=== PATIENT | female | born 1965 | race Two or more races ===

== ENCOUNTER 2021-04-29 11:36 | Emergency (ER) | payer MEDICAID, OTHER ==
[~2021-04-29] VITALS: Ht 157.5 cm; Wt 72.6 kg
[2021-04-29] MEDS ORDERED: cloNIDine HCL 0.1 MG TAB PO ONE (12:30)
[2021-04-29 13:57] VITALS: BP 140/100
== END 2021-04-29 14:18 | disposition home or self-care (01) ==
LOC: ER 11:36
DX: I10 Essential (primary) hypertension (principal); Z20.822 Contact with and (suspected) exposure to COVID-19
CPT/HCPCS: 36415; 87426

== ENCOUNTER 2024-06-19 15:04 | Inpatient (IN) | payer MEDICAID ==
[~2024-06-19] VITALS: Ht 154.9 cm; Wt 81.0 kg
--- NOTE | 2024-06-19 15:16 | ED.PDOC ---
HPI Comments HPI: Poor Historian. HPI: 58 y/o F, with PMHX of DM and HTN presents to the ED for CC of s/p syncopal episode. Patient states, she has been experiencing flu-like symptoms x1week. Patient endorses, new onset symptoms of body-aches, congestion and fatigue. Patient relays, symptoms worsened today (06/19/24) with her "passing out" and waking up on the floor. Patient has visible small contusion to her left chin. Patient denies chest pain, head injury, headache, shortness of breath, or N/V/D. No other associated symptom's, modifiers, or sick contacts at this time. Patient states that she passed out for approximately 2 hours. She was initially was on the phone with her daughter earlier. Initial Vital Signs: Temp :98.9 BP: 169/86 HR:90 RR: 18 SpO2: 96 Past Medical History: DM, HTN, Past Surgical History: DENIES ANY Social History: Denies smoking, ETOH, or drug use. Medications: ASPIRIN Allergies: NKDA REVIEW OF SYSTEMS: CONSTITUTIONAL: Denies acute: fever, diaphoresis, chills, HEAD: Denies acute: headache, photophobia Eyes: Denies acute: Double vision, vision loss, eye pain, eye discharge. EARS: Denies acute: tinnitus, hearing loss, ear discharge, ear pain, THROAT: Denies acute: sore throat, swelling, difficulty swallowing , pain with swallowing, change in voice. NECK: Denies acute: neck pain, neck swelling, stiff neck. HEART: Denies acute : chest pain, palpitations, LUNGS: Denies acute: SOB, wheezing, cough, hemoptysis ABDOMEN: Denies acute: abdominal pain, Nausea, Vomiting, diarrhea, melena , hematemesis, hematochezia SKIN: Denies acute: rash, redness, lesions, itchiness. EXTREMITIES: Denies acute: calf pain, numbness, tingling, weakness, denies pain in extremity. Denies acute: Low back pain. Neuro: Denies acute: focal neurological deficit, motor or sensory focal neurological deficit, tremors, seizure like activity, confusion, change in mental status, loss of bowel or bladder function, cauda equina like symptoms. : Denies acute: dysuria, hematuria, flank pain, increase in urinary frequency. PSYCH: Denies acute: hallucination, suicidal ideation, homicidal ideation. FEMALE: Denies acute: abnormal vaginal bleeding, foul odor, unusual discharge. PHYSICAL EXAM: General: no acute distress, awake and alert. Head: normocephalic, atraumatic. Neck: supple, trachea is midline, no swelling. Cervical spine: Palpation of the posterior midline of the cervical spine reveals no focal swelling, erythema, focal tenderness to palpation. Patient has normal range of motion. Throat: Normal phonation. Eyes:, no erythema, no purulent discharge, no proptosis, no icterus. Heart: regular rate, regular rhythm, no significant murmur appreciated. Lungs: no apparent respiratory distress, Able to speak in full sentences. No wheezing, no rhonchi, no crackles. No stridors Clear to auscultation bilaterally. Abdomen: non tender to palpation, non distended, soft, no guarding, no rebound, + bowel sounds. Neuro: Awake, Alert, oriented to name, self, situation, follows commands GCS=15. Speech is normal. Skin: no petechia, no purpura, no cyanosis, non-pale, not jaundice. Lower extremities: --no - Pitting edema no deformity, no focal swelling, no calf TTP. Makes eye contact. moves all four extremities. Face: no apparent facial droop. Ambulating in the ED independently. No nuchal rigidity, Kernig's sign, Brudzinski's sign, no meningeal signs. ED COURSE: Time Seen by MD: 15:15 Primary Care Provider: Edy Reviewed Notes: Nurses Notes, Allergies Allergies: Coded Allergies: NO KNOWN ALLERGIES (Unverified , 04/29/21) Information Source: Patient Was a procedure done? Was a procedure done?: No CP Differential Dx Differential Diagnosis: N/A Differential Diagnosis: Other (Includes but not limited to thyroid disease, encephalopathy, electrolyte abnormality, sepsis, infection, intracranial pathology, drug adverse effects, arrhythmia, kidney insufficiency, ACS, CVA, malignancy, anemia) X-Ray, Labs, Meds, VS Vital Signs Date Time Temp Pulse Resp B/P (MAP) Pulse Ox O2 Delivery O2 Flow Rate FiO2 06/19/24 19:50 76 16 96 Room Air* 0 21 06/19/24 19:50 97.6 76 16 120/88 (99) 98 97.6 06/19/24 18:45 80 15 115/94 (101) 97 06/19/24 16:20 98.2 77 14 154/89 (110) 95 98.2 06/19/24 15:56 85 20 96 Room Air* 0 21 06/19/24 15:24 81 06/19/24 15:17 98.4 90 18 169/86 (113) 96 Lab Test 06/19/24 21:20 06/19/24 18:00 06/19/24 16:51 06/19/24 15:31 Range/Units Urine Color Yellow Yellow Urine Clarity Turbid H Clear Urine pH 6.0 5.0-9.0 Urine Specific [place] 1.017 1.001-1.035 Urine Protein Trace H Negative Urine Ketones Negative Negative Urine Blood Negative Negative /uL Urine Nitrite Negative Negative Urine Bilirubin Negative Negative Urine Urobilinogen Normal Negative mg/dL Urine Leukocyte Esterase 3+ Negative /uL Urine RBC 12 0 - 4 /hpf Urine Microscopic WBC 53 H 0-5 /HPF Urine Squamous Epithelial Cells Few <5 /hpf Urine Bacteria Few H None Seen /hpf Urine Hyaline Casts Mod 0 - 2 /lpf Urine Mucus Few None Seen Urine Glucose 3+ H Normal mg/dL Urine Opiates Screen Neg NEGATIVE Urine Fentanyl Screen Neg NEGATIVE Urine Barbiturates Screen Neg NEGATIVE Urine Phencyclidine Screen Neg NEGATIVE Urine Amphetamines Screen Neg NEGATIVE Urine Benzodiazepines Screen Neg NEGATIVE Urine Cocaine Screen Neg NEGATIVE Urine Cannabinoids Screen Neg NEGATIVE D-Dimer, Quantitative 0.23 0.0-0.49 mg/L FEU Troponin I High Sensitivity < 3 L < 3 L < 3 L </=34 ng/L Thyroid Stimulating Hormone (TSH) 59.48 H 0.55-4.78 uIU/mL White Blood Count 5.8 4.4-10.8 10^3/uL Red Blood Count 4.34 4.0-5.20 10^6/uL Hemoglobin 13.6 12.2-16.2 g/dL Hematocrit 39.8 36.0-46.0 % Mean Corpuscular Volume 91.6 80.0-100.0 fL Mean Corpuscular Hemoglobin 31.3 28.0-32.0 pg Mean Corpuscular Hemoglobin Concent 34.1 32.0-36.0 g/dL Red Cell Distribution Width 12.8 11.8-14.3 % Platelet Count 194 140-450 10^3/uL Mean Platelet Volume 9.5 6.9-10.8 fL Neutrophils (%) (Auto) 52.1 37.0-80.0 % Lymphocytes (%) (Auto) 38.1 10.0-50.0 % Monocytes (%) (Auto) 8.4 0.0-12.0 % Eosinophils (%) (Auto) 0.9 0.0-7.0 % Basophils (%) (Auto) 0.5 0.0-2.0 % Neutrophils # (Auto) 3.0 1.6-8.6 10 ^3/uL Lymphocytes # (Auto) 2.2 0.4-5.4 10 ^3/uL Monocytes # (Auto) 0.5 0-1.3 10 ^3/uL Eosinophils # (Auto) 0.1 0-0.8 10 ^3/uL Basophils # (Auto) 0 0-0.2 10 ^3/uL Nucleated Red Blood Cells 0.1 % Sodium Level 136 136-145 mmol/L Potassium Level 3.7 3.5-5.1 mmol/L Chloride Level 100 98-107 mmol/L Carbon Dioxide Level 27 20-31 mmol/L Anion Gap 9 5-15 Blood Urea Nitrogen 16 9-23 mg/dL Creatinine 0.98 0.550-1.02 mg/dL Glomerular Filtration Rate Calc 68 >90 mL/min BUN/Creatinine Ratio 16.3 10.0-20.0 Serum Glucose 178 H 74-106 mg/dL Lactic Acid Level 1.2 0.4-2.0 mmol/L Calcium Level 9.6 8.7-10.4 mg/dL Magnesium Level 2.0 1.6-2.6 mg/dL Total Bilirubin 0.5 0.2-1.0 mg/dL Aspartate Amino Transferase (AST) 30 13-40 U/L Alanine Aminotransferase (ALT) 23 7-40 U/L Alkaline Phosphatase 50 46-116 U/L B-Type Natriuretic Peptide 8.04 0-100 pg/mL Total Protein 7.6 5.7-8.2 g/dL Albumin 4.8 3.2-4.8 g/dL Test 06/19/24 15:16 06/19/24 15:14 Range/Units Influenza Type A Antigen Negative Negative Influenza Type B Antigen Negative Negative SARS-CoV-2 Antigen (Rapid) Negative NEGATIVE POC Glucose 202 H 70-106 mg/dl Current Medications Medications (Trade) Dose Ordered Sig/Ketan Route Start Time Stop Time Status Last Admin Sodium Chloride 1,000 ml @ 1,000 mls/hr Q1H ONCE IV 06/19/24 15:15 06/19/24 16:14 DC 06/19/24 15:36 [place] [address] Ph: [phone] DIAGNOSTIC IMAGING Diagnostic Imaging Report : [id number] Signed PATIENT: TETE POLO ACCT: [id number] UNIT: [id number] : 1965 LOC: ER ROOM / BED: / AGE / SEX: 58 / F ADM STATUS: REG ER SERVICE 1509 ORDERING PHYSICIAN: MIRELA SHAIKH DO PROCEDURE(s): CXRP - CHEST PORTABLE REASON: SYNCOPE AND COLLAPSE. ORDER NUMBER(s): [id number], ACCESSION NUMBER(s): [id number] INDICATION: SYNCOPE AND COLLAPSE. TECHNIQUE: Frontal view of the chest. COMPARISON: None FINDINGS: The heart and mediastinal contours are grossly unremarkable. There is no evidence of pleural disease. The lungs are clear. The bony structures of the chest are intact without fracture. IMPRESSION: 1. No evidence of acute disease. ATED BY: GARRISON RIVAS MD DICTATED DATE/TIME: 06/19/24 1547 SIGNED BY: GARRISON RIVAS MD SIGNED DATE/TIME: 06/19/24 1547 CC: [place] [address] Ph: [phone] DIAGNOSTIC IMAGING Diagnostic Imaging Report : [id number] Signed PATIENT: TETE POLO ACCT: [id number] UNIT: [id number] : 1965 LOC: ER ROOM / BED: / AGE / SEX: 58 / F ADM STATUS: REG ER SERVICE 1509 ORDERING PHYSICIAN: MIRELA SHAIKH DO PROCEDURE(s): HWOCT - HEAD WITHOUT CONTRAST REASON: SYNCOPE AND COLLAPSE ORDER NUMBER(s): [id number], ACCESSION NUMBER(s): [id number] EXAM: CT HEAD WITHOUT CONTRAST HISTORY: SYNCOPE AND COLLAPSE COMPARISON: None TECHNIQUE: Axial images were obtained and reformatted in coronal and sagittal planes. All CT scans at this medical facility are performed using dose modulation techniques as appropriate to a performed exam including the following: Automated exposure control was utilized; adjustment of the MA and/or KV according to patient size; and use of iterative reconstruction technique. CT Dose: CTDI volume is 51.58 mGy. Dose-length product is 826.95 mGy*cm FINDINGS: Supratentorial Region: No evidence for large acute territorial ischemia. No intracranial hemorrhage is noted. Posterior Fossa: No acute abnormality. Brainstem: Unremarkable. Sellar/Suprasellar Region: Mild diffuse paranasal sinus mucosal thickening. Air-fluid levels are noted in the frontal, sphenoid and maxillary sinuses. Ventricles, Cisterns, Sulci: Age-appropriate. Orbits: Unremarkable. Paranasal Sinuses: Unremarkable. Mastoid Air Cells: Unremarkable. Vasculature: Intracranial arterial calcified plaque formation noted. Bones/Soft Tissues: No acute abnormality. Other: None. IMPRESSION: 1. No acute intracranial process. 2. Acute sinusitis. ATED BY: YESSICA STANLEY MD DICTATED DATE/TIME: 06/19/24 161 SIGNED BY: YESSICA STANLEY MD SIGNED DATE/TIME: 06/19/24 1614 CC: Time of 1ST Reevaluation: 15:45 Reevaluation 1ST: Improved Patient Education/Counseling: Diagnosis, Treatment Family Education/Counseling: Other Comments Patient presented with the above HPI.--- S/P SYNCOPAL EPISODE ---workup was initiated. patient was found with the above mentioned diagnosis. the following medications were ordered: please refer to order lists of meds and tests obtained by myself Dr. Shaikh. Patient ED course and VS have been stabilized. Patient has been reassessed in the ED and remained in a stable condition. Pertinent incidental findings were discussed with the patient and/or family. Patient/family voices understanding and is agreeable with plan. Patient has been observed in the ED adequate length of time to insure improvement/stability. Escalation of care considered: Consideration of escalation to observation or admission Patient was ADMITTED to the medicine team for further evaluation and treatment of their presentation. All the reports of any imaging studies that were ordered by myself were reviewed by myself. Departure 1 Departure Time of Disposition: 15:20 Impression: Primary Impression: Syncope and collapse Additional Impression: Acute sinusitis Disposition: ADMITTED INPATIENT Admit to: Tele Condition: Guarded Additional Instructions: [place] [address] Ph: [phone] DIAGNOSTIC IMAGING Diagnostic Imaging Report : [id number] Signed PATIENT: TETE POLO ACCT: [id number] UNIT: [id number] : 1965 LOC: ER ROOM / BED: / AGE / SEX: 58 / F ADM STATUS: REG ER SERVICE 1509 ORDERING PHYSICIAN: MIRELA SHAIKH DO PROCEDURE(s): CXRP - CHEST PORTABLE REASON: SYNCOPE AND COLLAPSE. ORDER NUMBER(s): [id number], ACCESSION NUMBER(s): [id number] INDICATION: SYNCOPE AND COLLAPSE. TECHNIQUE: Frontal view of the chest. COMPARISON: None FINDINGS: The heart and mediastinal contours are grossly unremarkable. There is no evidence of pleural disease. The lungs are clear. The bony structures of the chest are intact without fracture. IMPRESSION: 1. No evidence of acute disease. ATED BY: GARRISON RIVAS MD DICTATED DATE/TIME: 06/19/24 1547 SIGNED BY: GARRISON RIVAS MD SIGNED DATE/TIME: 06/19/24 1547 CC: [place] [address] Ph: [phone] DIAGNOSTIC IMAGING Diagnostic Imaging Report : [id number] Signed PATIENT: TETE POLO ACCT: [id number] UNIT: [id number] : 1965 LOC: ER ROOM / BED: / AGE / SEX: 58 / F ADM STATUS: REG ER SERVICE 1509 ORDERING PHYSICIAN: MIRELA SHAIKH DO PROCEDURE(s): HWOCT - HEAD WITHOUT CONTRAST REASON: SYNCOPE AND COLLAPSE ORDER NUMBER(s): [id number], ACCESSION NUMBER(s): [id number] EXAM: CT HEAD WITHOUT CONTRAST HISTORY: SYNCOPE AND COLLAPSE COMPARISON: None TECHNIQUE: Axial images were obtained and reformatted in coronal and sagittal planes. All CT scans at this medical facility are performed using dose modulation techniques as appropriate to a performed exam including the following: Automated exposure control was utilized; adjustment of the MA and/or KV according to patient size; and use of iterative reconstruction technique. CT Dose: CTDI volume is 51.58 mGy. Dose-length product is 826.95 mGy*cm FINDINGS: Supratentorial Region: No evidence for large acute territorial ischemia. No intracranial hemorrhage is noted. Posterior Fossa: No acute abnormality. Brainstem: Unremarkable. Sellar/Suprasellar Region: Mild diffuse paranasal sinus mucosal thickening. Air-fluid levels are noted in the frontal, sphenoid and maxillary sinuses. Ventricles, Cisterns, Sulci: Age-appropriate. Orbits: Unremarkable. Paranasal Sinuses: Unremarkable. Mastoid Air Cells: Unremarkable. Vasculature: Intracranial arterial calcified plaque formation noted. Bones/Soft Tissues: No acute abnormality. Other: None. IMPRESSION: 1. No acute intracranial process. 2. Acute sinusitis. ATED BY: YESSICA STANLEY MD DICTATED DATE/TIME: 06/19/24 161 SIGNED BY: YESSICA STANLEY MD SIGNED DATE/TIME: 06/19/24 161 CC: Discharged With: Self Critical Care Note Critical Care Time?: No Heart Score Heart Score: Heart Score Response (Comments) Value History Slightly Suspicious 0 EKG Normal 0 Age 45-64 1 Risk Factors >3 or Hx ASHD 2 Troponin Normal limit 0 Total 3 I personally scribed for MIRELA SHAIKH DO ([email or web address]) on 06/19/24 at 15:16. Electronically submitted by Loli Barrett ([email or web address]). I personally scribed for MIRELA SHAIKH DO ([email or web address]) on 06/19/24 at 15:17. Electronically submitted by Loli Brarett ([email or web address]). I personally scribed for NEEL,MIRELA J DO ([email or web address]) on 06/19/24 at 15:23. Electronically submitted by Loli Barrett ([email or web address]). I personally scribed for NEEL,MIRELA J DO ([email or web address]) on 06/19/24 at 15:28. Electronically submitted by Loli Barrett ([email or web address]). I personally scribed for NEEL,MIRELA J DO ([email or web address]) on 06/19/24 at 15:34. El ectronically submitted by Loli Barrett ([email or web address]). I personally scribed for NEEL,MIRELA J DO ([email or web address]) on 06/19/24 at 15:55. Electr onically submitted by Loli Barrett ([email or web address]). I personally scribed for NEEL,MIRELA J DO ([email or web address]) on 06/19/24 at 17:01. Electronically submitted by Loli Barrett ([email or web address]). I personally scribed for NEEL,MIRELA J DO ([email or web address]) on 06/19/24 at 17:02. Electronically submitted by Loli Barrett ([email or web address]). I personally scribed for NEEL,MIRELA J DO ([email or web address]) on 06/19/24 at 17:10. Electronically submitted by Loli Barrett ([email or web address]). I personally scribed for NEEL,MIRELA J DO ([email or web address]) on 06/19/24 at 18:25. Electronically submitted by Loli Barrett ([email or web address]). NEEL,MIRELA J DO Jun 19, 2024 15:16
[2024-06-19] MEDS: SODIUM CHLORIDE 0.9% 1,000 ML IV ONE (15:36)
--- NOTE | 2024-06-19 15:50 | DVH ---
INDICATION: SYNCOPE AND COLLAPSE. TECHNIQUE: Frontal view of the chest. COMPARISON: None FINDINGS: The heart and mediastinal contours are grossly unremarkable. There is no evidence of pleural diseas e. The lungs are clear. The bony structures of the chest are intact without fracture. IMPRESSION: 1. No evidence of acute disease.
[2024-06-19 15:56] VITALS: PULSE 85; RESP 20; O2SAT 96
[2024-06-19 16:04] LABS: COVID19 ANTIGEN SOFIA FIA NEGATIVE (NEGATIVE)
[2024-06-19 16:05] LABS: Rapid Influenza A Negative (Negative); Rapid Influenza B Negative (Negative)
[2024-06-19 16:15] LABS: Basophils # (auto) 0 10 ^3/uL (0-0.2); Basophils % (auto) 0.5 % (0.0-2.0); Eosinophils # (auto) 0.1 10 ^3/uL (0-0.8); Eosinophils % (auto) 0.9 % (0.0-7.0); Hematocrit 39.8 % (36.0-46.0); Hemoglobin 13.6 g/dL (12.2-16.2); Lymphocytes # (auto) 2.2 10 ^3/uL (0.4-5.4); Lymphocytes % (auto) 38.1 % (10.0-50.0); Mean Corpuscular Hemoglobin 31.3 pg (28.0-32.0); Mean Corpuscular Hgb Conc. 34.1 g/dL (32.0-36.0); Mean Corpuscular Volume 91.6 fL (80.0-100.0); Monocytes # (auto) 0.5 10 ^3/uL (0-1.3); Monocytes % (auto) 8.4 % (0.0-12.0); Neutrophils % (auto) 52.1 % (37.0-80.0); Nucleated Red Blood Cells % 0.1 %; Platelet Count (auto) 194 10^3/uL (140-450); Red Blood Cells 4.34 10^6/uL (4.0-5.20); Red Cell Distribution Width 12.8 % (11.8-14.3); White Blood Cell 5.8 10^3/uL (4.4-10.8)
--- NOTE | 2024-06-19 16:16 | DVH ---
EXAM: CT HEAD WITHOUT CONTRAST HISTORY: SYNCOPE AND COLLAPSE COMPARISON: None TECHNIQUE: Axial images were obtained and reformatted in coronal and sagittal planes. All CT scans at this medical facility are performed using dose modulation techniques as appropriate t o a performed exam including the following: Automated exposure control was utilized; adjustment of th e MA and/or KV according to patient size; and use of iterative reconstruction technique. CT Dose: CTDI volume is 51.58 mGy. Dose-length product is 826.95 mGy*cm FINDINGS: Supratentorial Region: No evidence for large acute territorial ischemia. No intracranial hemorrhage is noted. Posterior Fossa: No acute abnormality. Brainstem: Unremarkable. Sellar/Suprasellar Region: Mild diffuse paranasal sinus mucosal thickening. Air-fluid levels are no gaudencio in the frontal, sphenoid and maxillary sinuses. Ventricles, Cisterns, Sulci: Age-appropriate. Orbits: Unremarkable. Paranasal Sinuses: Unremarkable. Mastoid Air Cells: Unremarkable. Vasculature: Intracranial arterial calcified plaque formation noted. Bones/Soft Tissues: No acute abnormality. Other: None. IMPRESSION: 1. No acute intracranial process. 2. Acute sinusitis.
[2024-06-19 16:34] LABS: Alanine Aminotransferase 23 U/L (7-40); Alkaline Phosphatase 50 U/L (46-116); Anion Gap 9 (5-15); Aspartate Aminotransferase 30 U/L (13-40); BUN/Creatinine Ratio 16.3 (10.0-20.0); Bilirubin, Total 0.5 mg/dL (0.2-1.0); Blood Urea Nitrogen 16 mg/dL (9-23); Calcium 9.6 mg/dL (8.7-10.4); Carbon Dioxide 27 mmol/L (20-31); Chloride 100 mmol/L (98-107); Potassium 3.7 mmol/L (3.5-5.1); Total Protein 7.6 g/dL (5.7-8.2)
[2024-06-19 16:44] LABS: Albumin 4.8 g/dL (3.2-4.8); Glucose 178 mg/dL (74-106); Sodium 136 mmol/L (136-145)
[2024-06-19 19:50] VITALS: PULSE 76; RESP 16; O2SAT 96
[2024-06-19] MEDS ORDERED: NITROGLYCERIN 0.4 MG SL TAB SL PRN (22:00)
[2024-06-19] MEDS ORDERED: MORPHINE SULFATE INJ 2 MG/ml SYRG IV PRN (22:00)
[2024-06-19 22:13] LABS: Urine Bacteria FEW /hpf (None Seen); Urine Blood Negative /uL (Negative); Urine Clarity Turbid (Clear); Urine Color Yellow (Yellow); Urine Hyaline Cast MOD /lpf (0 - 2); Urine Mucus FEW (None Seen); Urine Protein, UAD TRACE (Negative); Urine Specific Gravity 1.017 (1.001-1.035); Urine Squamous Epithelial Cell FEW /hpf (<5); Urine Urobilinogen Normal (Negative); Urine WBC 53 /HPF (0-5)
[2024-06-19 22:22] LABS: Amphetamine Screen, Urine Neg (NEGATIVE); Barbiturate Scree,Urine Neg (NEGATIVE); Benzodiazephine Screen, Urine Neg (NEGATIVE); Cannabinoid Screen, Urine Neg (NEGATIVE); Cocaine Screen, Urine Neg (NEGATIVE); Opiate Scree,Urine Neg (NEGATIVE); Phencyclidine Screen, Urine Neg (NEGATIVE)
[2024-06-19] MEDS: SODIUM CHLORIDE 0.9% 1,000 ML IV SCH (22:24)
[2024-06-19 22:57] VITALS: BP 152/96; PULSE 76; RESP 16; RESP 18; TEMP 98.6; O2SAT 95
[2024-06-19 23:44] LABS: Free T4 (Free Thyroxine) 0.41 ng/dL (0.89-1.76)
[2024-06-19 23:45] LABS: T3 Total 0.6 ng/mL (0.60-1.81)
[2024-06-20] VITALS (11 sets, daily range): BP systolic 110–152; BP diastolic 66–90; PULSE 68–83; RESP 18–20; TEMP 98–98.6; O2SAT 95–98
[2024-06-20] MEDS: cefTRIAXone 1GM/50ML D5W 50 ML IV ONE (00:26)
--- NOTE | 2024-06-20 00:49 | DVHHPRES ---
History of Present Illness Resident Creating Document: SERGEY BENITES RESIDENT History of Present Illness Yuan Kiser 58 years old female with a PMH of type 2 DM, HTN, hypothyroidism presented to the ED with the chief complaints of syncopal episode. Patient reported since Sunday patient has been having mild nausea body aches and tiredness but yesterday patient was walking and suddenly she fainted without any prodromal symptoms patient is exactly unable to recall how much time she was fainted approximately 2 hours and hit her chin. Patient also reported she has a history of fainting during her at that time she has some prodromal symptoms but not this time. Patient is more consent so visited ED. patient also reported she has been experiencing flu-like symptoms for 1 week. On my assessment patient denies fever, chest pain, shortness of breath, palpitations, nausea, vomiting, heterogeneous and other acute associated symptoms. PMH: Type 2 DM, HTN, hypothyroidism on levothyroxine 125 mg PSH: Denies Social history: Lives with family. Denies smoking, alcohol and other drug abuse Family history: Reviewed, noncontributory Allergies: No known allergies Home medications: Hydrochlorothiazide, amlodipine but unknown doses. Levothyroxine 125 mg Review of Systems Constitutional: No: Fever, Chills, Sweats, Weakness, Malaise, Other Eyes: No: Pain, Vision change, Conjunctivae inflammation, Eyelid inflammation, Other, Redness ENT: Nose congestion Respiratory: No: Cough, Dry, Shortness of breath, SOB with excertion, Wheezing, Hemoptysis, Pleuritic Pain, Sputum, Wheezing, Other Cardiovascular: No: Chest Pain, Palpitations, Orthopnea, Paroxysmal Noc. Dyspnea, Edema, Lt Headedness, Other Gastrointestinal: No: Nausea, Vomiting, Abdominal Pain, Diarrhea, Constipation, Melena, Hematochezia, Other Genitourinary: No Dysuria, No Frequency, No Incontinence, No Hematuria, No Retention, No Other Musculoskeletal: No: other, neck pain, shoulder pain, arm pain, back pain, hand pain, leg pain, foot pain Skin: No: Rash, Lesions, Jaundice, Bruising, Other Neurological: No: Weakness, Numbness, Incoordination, Change in speech, Confusion, Seizures, Other Allergies: Coded Allergies: NO KNOWN ALLERGIES (Unverified , 04/29/21) Medications Current Medications Medications Dose Ordered Sig/Ketan Route Start Time Stop Time Status Last Admin Dose Admin Sodium Chloride 1,000 ml @ 120 mls/hr [id number] IV 06/19/24 22:00 06/19/24 22:24 120 MLS/HR Enoxaparin Sodium 40 mg DAILY SC 06/20/24 10:00 Acetaminophen 650 mg Q6HP PRN PO 06/19/24 22:00 Nitroglycerin 0.4 mg Q5MINP PRN SL 06/19/24 22:00 Morphine Sulfate 2 mg Q30M PRN IV 06/19/24 22:00 Ceftriaxone Sodium 50 ml @ 100 mls/hr DAILY@2100 IV 06/20/24 21:00 Exam Vital Signs Vital Signs Date Time Temp Pulse Resp B/P (MAP) Pulse Ox O2 Delivery O2 Flow Rate FiO2 06/19/24 22:57 98.6 76 16 152/96 (114) 95 98.6 06/19/24 22:57 Room Air* 0 21 Exam Pt is lying on bed General Appearance: Alert, Oriented X3, Cooperative, Not in acute distress HEENT: Atraumatic, Mucous membranes moist/pink Respiratory: Clear to auscultation, Normal air movement Cardiovascular: Regular rate, Normal S1, Normal S2, No murmurs Abdominal: Mild suprapubic tenderness. Active bowel sounds, Soft, no distention, no tendernes Extremities: No edema, Normal pulses, No tenderness/swelling Skin: No Significant rash, except past surgical scars Neuro: Normal speech, sensorimotor deficits none Psych/Mental Status: Mental status NL, Mood NL Nurse was there as sharperone during examination Labs/Xrays Labs Test 06/19/24 21:57 06/19/24 21:20 06/19/24 18:00 06/19/24 15:31 Range/Units Free Thyroxine (T4) Calculated 0.41 L 0.89-1.76 ng/dL Total Triiodothyronine (TT3) 0.60 0.60-1.81 ng/mL Plasma/Serum Blood Alcohol < 3.0 <10 mg/dL Urine Color Yellow Yellow Urine Clarity Turbid H Clear Urine pH 6.0 5.0-9.0 Urine Specific [place] 1.017 1.001-1.035 Urine Protein Trace H Negative Urine Ketones Negative Negative Urine Blood Negative Negative /uL Urine Nitrite Negative Negative Urine Bilirubin Negative Negative Urine Urobilinogen Normal Negative mg/dL Urine Leukocyte Esterase 3+ Negative /uL Urine RBC 12 0 - 4 /hpf Urine Microscopic WBC 53 H 0-5 /HPF Urine Squamous Epithelial Cells Few <5 /hpf Urine Bacteria Few H None Seen /hpf Urine Hyaline Casts Mod 0 - 2 /lpf Urine Mucus Few None Seen Urine Glucose 3+ H Normal mg/dL Urine Opiates Screen Neg NEGATIVE Urine Fentanyl Screen Neg NEGATIVE Urine Barbiturates Screen Neg NEGATIVE Urine Phencyclidine Screen Neg NEGATIVE Urine Amphetamines Screen Neg NEGATIVE Urine Benzodiazepines Screen Neg NEGATIVE Urine Cocaine Screen Neg NEGATIVE Urine Cannabinoids Screen Neg NEGATIVE D-Dimer, Quantitative 0.23 0.0-0.49 mg/L FEU Troponin I High Sensitivity < 3 L </=34 ng/L Thyroid Stimulating Hormone (TSH) 59.48 H 0.55-4.78 uIU/mL White Blood Count 5.8 4.4-10.8 10^3/uL Red Blood Count 4.34 4.0-5.20 10^6/uL Hemoglobin 13.6 12.2-16.2 g/dL Hematocrit 39.8 36.0-46.0 % Mean Corpuscular Volume 91.6 80.0-100.0 fL Mean Corpuscular Hemoglobin 31.3 28.0-32.0 pg Mean Corpuscular Hemoglobin Concent 34.1 32.0-36.0 g/dL Red Cell Distribution Width 12.8 11.8-14.3 % Platelet Count 194 140-450 10^3/uL Mean Platelet Volume 9.5 6.9-10.8 fL Neutrophils (%) (Auto) 52.1 37.0-80.0 % Lymphocytes (%) (Auto) 38.1 10.0-50.0 % Monocytes (%) (Auto) 8.4 0.0-12.0 % Eosinophils (%) (Auto) 0.9 0.0-7.0 % Basophils (%) (Auto) 0.5 0.0-2.0 % Neutrophils # (Auto) 3.0 1.6-8.6 10 ^3/uL Lymphocytes # (Auto) 2.2 0.4-5.4 10 ^3/uL Monocytes # (Auto) 0.5 0-1.3 10 ^3/uL Eosinophils # (Auto) 0.1 0-0.8 10 ^3/uL Basophils # (Auto) 0 0-0.2 10 ^3/uL Nucleated Red Blood Cells 0.1 % Sodium Level 136 136-145 mmol/L Potassium Level 3.7 3.5-5.1 mmol/L Chloride Level 100 98-107 mmol/L Carbon Dioxide Level 27 20-31 mmol/L Anion Gap 9 5-15 Blood Urea Nitrogen 16 9-23 mg/dL Creatinine 0.98 0.550-1.02 mg/dL Glomerular Filtration Rate Calc 68 >90 mL/min BUN/Creatinine Ratio 16.3 10.0-20.0 Serum Glucose 178 H 74-106 mg/dL Lactic Acid Level 1.2 0.4-2.0 mmol/L Calcium Level 9.6 8.7-10.4 mg/dL Magnesium Level 2.0 1.6-2.6 mg/dL Total Bilirubin 0.5 0.2-1.0 mg/dL Aspartate Amino Transferase (AST) 30 13-40 U/L Alanine Aminotransferase (ALT) 23 7-40 U/L Alkaline Phosphatase 50 46-116 U/L B-Type Natriuretic Peptide 8.04 0-100 pg/mL Total Protein 7.6 5.7-8.2 g/dL Albumin 4.8 3.2-4.8 g/dL Test 06/19/24 15:16 06/19/24 15:14 Range/Units Influenza Type A Antigen Negative Negative Influenza Type B Antigen Negative Negative SARS-CoV-2 Antigen (Rapid) Negative NEGATIVE POC Glucose 202 H 70-106 mg/dl Assessment/Plan Assessment/Plan # Syncope # ? Autonamic Imbalance # mechanical fall with a LOC -CT showed no acute changes -monitor on telemetry -currently on IVF -orthostatic vitals negative # acute sinusitis -clinical and CT evident -currently on Rocephin # Acute complicated UTI - evident on urinalysis - ordered urine bacterial culture - currently giving Rocephin # hypertensive urgency -closely monitor -hydralazine p.r.n. 10 mg until patient gets home meds # hypothyroidism -elevated TSH and low free T4 -levothyroxine 125 mg as home dose -outpatient follow up to change thyroxine dose PUD PPX: not indicated VTE PPX: Patient is ambulatory Diet: Cardiac diet and diabetic diet Goals of care discussed with the patient for more than 29 minutes: Full code status Case discussed with Dr. Murray, patient and nurse Plan discussed with: Patient My Orders Orders - SERGEY BENITES RESIDENT Procedure Category Date Status Time Admit ADMIT 06/19/24 Transmitted 21:46 Allergies NIKHIL 06/19/24 In Process 21:46 Code Status CODE 06/19/24 Transmitted 21:46 Sodium Chloride 0.9% PHA 06/19/24 In Process 22:00 Enoxaparin Sodium PHA 06/20/24 In Process (Lovenox) 10:00 Complete Blood Count LAB 06/20/24 Logged 04:00 Comprehensive LAB 06/20/24 Logged Metabolic Panel 04:00 Cardiac DIET 06/20/24 Transmitted Diet-2gna,Lofat,Lochol Breakfast Echo 2d Mode Cardiac US 06/19/24 Logged DOP 21:46 Condition: Stable NIKHIL 06/19/24 In Process 21:46 Acetaminophen Tablet PHA 06/19/24 In Process (Tylenol Tablet) 22:00 Nitroglycerin PHA 06/19/24 In Process Sublingual (Ntrostat 22:00 Morphine Sulfate PHA 06/19/24 In Process Injection 22:00 Oxygen By Nasal RT 06/19/24 Transmitted Cannula 21:46 Stat Ekg For Chest NIKHIL 06/19/24 In Process Pain 21:46 Notify Of Changes NIKHIL 06/19/24 In Process From Base 21:46 Coal Picker For NIKHIL 06/19/24 In Process 24 Hours 21:46 Emergency Dysrhythmia NIKHIL 06/19/24 In Process Protocol 21:46 Rhythm Strips Once NIKHIL 06/19/24 In Process Every Shift 21:46 Orthostatic Vital ED NURSING 06/19/24 Transmitted Signs Ceftriaxone 1gm/50ml PHA 06/20/24 In Process D5w (Rocephin) 21:00 Urine Bacterial ALAN 06/19/24 In Process Culture 23:25 * Dietary Consult CONS 06/19/24 Transmitted 23:46 Hydralazine Injection PHA 06/20/24 Logged (Apresoline Inject 00:45 Hydralazine Injection PHA 06/20/24 Logged (Apresoline Inject 00:45 Levothyroxine Tablet PHA 06/20/24 Verified (Synthroid Tablet) 06:00 Date of Service: Jun 19, 2024 Billing Provider: LINK MURRAY MD Common Visit Codes: [id number] INP/OBS CARE (HIGH) SERGEY BENITES RESIDENT Jun 20, 2024 00:49 LINK MURRAY MD Jun 20, 2024 09:19
[2024-06-20] MEDS: hydrALAZINE HCL 20 MG/ML VL IV ONE (01:14)
[2024-06-20] MEDS ORDERED: LEVO125T7 PO (05:14)
[2024-06-20] MEDS ORDERED: ASPI-628 (05:14)
[2024-06-20] MEDS ORDERED: METF-370 PO (05:14)
[2024-06-20] MEDS: LEVOTHYROXINE SODIUM 50 MCG TAB PO SCH (06:07)
[2024-06-20] MEDS: SODIUM CHLORIDE 0.9% 1,000 ML IV SCH (06:08)
[2024-06-20 06:43] LABS: Basophils # (auto) 0 10 ^3/uL (0-0.2); Basophils % (auto) 0.6 % (0.0-2.0); Eosinophils # (auto) 0.1 10 ^3/uL (0-0.8); Eosinophils % (auto) 1.3 % (0.0-7.0); Hematocrit 36.8 % (36.0-46.0); Hemoglobin 12.5 g/dL (12.2-16.2); Lymphocytes # (auto) 2.2 10 ^3/uL (0.4-5.4); Lymphocytes % (auto) 39.3 % (10.0-50.0); Mean Corpuscular Hemoglobin 31.2 pg (28.0-32.0); Mean Corpuscular Hgb Conc. 34.1 g/dL (32.0-36.0); Mean Corpuscular Volume 91.5 fL (80.0-100.0); Monocytes # (auto) 0.4 10 ^3/uL (0-1.3); Monocytes % (auto) 7.1 % (0.0-12.0); Neutrophils # (auto) 2.8 10 ^3/uL (1.6-8.6); Neutrophils % (auto) 51.7 % (37.0-80.0); Nucleated Red Blood Cells % 0.2 %; Platelet Count (auto) 174 10^3/uL (140-450); Red Blood Cells 4.02 10^6/uL (4.0-5.20); Red Cell Distribution Width 12.8 % (11.8-14.3); White Blood Cell 5.5 10^3/uL (4.4-10.8)
[2024-06-20 07:33] LABS: Alanine Aminotransferase 15 U/L (7-40); Albumin 4.1 g/dL (3.2-4.8); Anion Gap 10 (5-15); Aspartate Aminotransferase 23 U/L (13-40); Blood Urea Nitrogen 10 mg/dL (9-23); Calcium 8.7 mg/dL (8.7-10.4); Carbon Dioxide 24 mmol/L (20-31); Chloride 104 mmol/L (98-107); Sodium 138 mmol/L (136-145)
[2024-06-20 07:34] LABS: Bilirubin, Total 0.4 mg/dL (0.2-1.0); Total Protein 6.7 g/dL (5.7-8.2)
[2024-06-20 07:35] LABS: Alkaline Phosphatase 42 U/L (46-116); Glucose 165 mg/dL (74-106); Potassium 3.4 mmol/L (3.5-5.1)
[2024-06-20] MEDS: ENOXAPARIN SOD 40 MG/0.4 ML SYRINGE SC SCH (09:06)
--- NOTE | 2024-06-20 09:22 | ECG ---
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
[2024-06-20] MEDS: POTASSIUM CHL 20 Meq TABLET PO ONE (11:12)
[2024-06-20] MEDS ORDERED: DEXTROSE (50%) 50ML SYRG IV PRN (12:00)
[2024-06-20] MEDS: ACCU-CHEK COMFORT CURVE STRIP VI SCH (14:50)
[2024-06-20] MEDS: InsuLIN REG 1unit/0.01ml Soln (100units/ml) SC SCH (14:53)
--- NOTE | 2024-06-20 15:14 | DVHPNRES ---
Progress Note Date Seen: Jun 20, 2024 Resident Creating Document: TARSHA SMITH RESIDENT Medical Necessity Reason Pt with a Central, PICC or Fol: No Subjective Review of Systems HPI- Yuan Kiser 58 years old female with a PMH of type 2 DM, HTN, hypothyroidism presented to the ED with the chief complaints of syncopal episode. Patient reported since Sunday patient has been having mild nausea body aches and tiredness but yesterday patient was walking and suddenly she fainted without any prodromal symptoms patient is exactly unable to recall how much time she was fainted approximately 2 hours and hit her chin. Patient also reported she has a history of fainting during her at that time she has some prodromal symptoms but not this time. Patient is more consent so visited ED. patient also reported she has been experiencing flu-like symptoms for 1 week. On my assessment patient denies fever, chest pain, shortness of breath, palpitations, nausea, vomiting, heterogeneous and other acute associated symptoms. Patient's lab workup revealed potassium 3.4, TSH 59.48, free T4 0.41, total T3 0.60. Urinalysis revealed leukocyte esterase 3+, WBC 53, RBC 12, bacteria few. CXR no acute evidence of disease. CT head- No acute intracranial process. Acute sinusitis. EKG normal sinus rhythm, no acute ST or T-wave changes no heart block. Orthostatic vitals negative for arthritic hypotension. PMH: Type 2 DM, HTN, hypothyroidism on levothyroxine 125 mg PSH: Denies Social history: Lives with family. Denies smoking, alcohol and other drug abuse Family history: Reviewed, noncontributory Allergies: No known allergies Home medications: Hydrochlorothiazide, amlodipine but unknown doses. Levothyroxine 125 mg Patient was seen today at the bedside. Cardiovascular- deny acute chest pain or shortness of breath or cough or palpitation Respiratory denies cough or short of breath or wheezing Gastrointestinal- denies any rectal bleeding, nausea or vomiting Musculoskeletal-denies acute joint swelling or tenderness or redness Neurological- denies acute dysarthria, dysphagia, change in vision Psychiatry- denies depression or SI or HI Skin- denies acute rash or purpura Patient was seen today for clinical evaluation. Labs and chart reviewed. Patient was restarted on levothyroxine 125 mcg daily. Pending echo 2D report. Orthostatic vital negative. On ceftriaxone 1 g IV daily for complicated UTI. Negative for Guillermo Hallpike maneuver, Objective vital signs Vital Sign Date Time Temp Pulse Resp B/P (MAP) Pulse Ox O2 Delivery O2 Flow Rate FiO2 06/20/24 13:00 98.1 83 18 143/79 (100) 95 98.1 06/19/24 22:57 Room Air* 0 21 Total Intake and Output 06/19/24 06/19/24 06/20/24 15:00 23:00 07:00 Intake Total 1000 ml 1070 ml Balance 1000 ml 1070 ml medications Current Medications Medications Dose Ordered Sig/Ketan Route Start Time Stop Time Status Last Admin Dose Admin Enoxaparin Sodium 40 mg DAILY SC 06/20/24 10:00 06/20/24 09:06 40 MG Acetaminophen 650 mg Q6HP PRN PO 06/19/24 22:00 Nitroglycerin 0.4 mg Q5MINP PRN SL 06/19/24 22:00 Morphine Sulfate 2 mg Q30M PRN IV 06/19/24 22:00 Ceftriaxone Sodium 50 ml @ 100 mls/hr DAILY@2100 IV 06/20/24 21:00 Hydralazine HCl 10 mg Q6HP PRN IV 06/20/24 00:45 Sodium Chloride 1,000 ml @ 60 mls/hr [id number] IV 06/20/24 05:30 Hold 06/20/24 06:08 60 MLS/HR Levothyroxine Sodium 150 mcg QAM@0600 PO 06/21/24 06:00 Cancel Levothyroxine Sodium 125 mcg QAM@0600 PO 06/21/24 06:00 Diagnostic Test (Pha) 1 strip IQ4HR 06/20/24 12:00 06/20/24 14:50 1 STRIP Insulin Human Regular IQ4HR SC 06/20/24 12:00 06/20/24 14:53 3 UNITS Dextrose 50 ml UD PRN IV 06/20/24 12:00 Examination General examination-awake, alert oriented, conversant HEENT- PEERLA, no acute nasal discharge Cardiovascular- S1-S2 audible, rate and rhythm regular, no murmur Respiratory- CTAB, no wheeze or rhonchi Gastrointestinal-nontender, bowel sound+. Nondistended Musculoskeletal-no acute joint swelling or tenderness or redness# Lower extremity- no leg edema Neurological- cranial nerves intact, no acute dysarthria or dysphagia Psychiatry- denies depression or SI or HI Skin- no acute rash or purpura laboratory and microbiology Laboratory Tests 06/20/24 05:40 Test 06/20/24 05:40 Range/Units Serum Glucose 165 H 74-106 mg/dL Problem List/Assessment/Plan Problem List/Assessment/Plan # Syncope # ? Autonamic Imbalance # mechanical fall with a LOC -CT showed no acute changes -monitor on telemetry -currently on IVF -orthostatic vitals negative -Negative for Guillermo Hallpike maneuver, # acute sinusitis -clinical and CT evident -currently on Rocephin # Acute complicated UTI - evident on urinalysis - ordered urine bacterial culture - currently giving Rocephin # hypertensive urgency -closely monitor -hydralazine p.r.n. 10 mg until patient gets home meds # hypothyroidism -elevated TSH and low free T4 -levothyroxine 125 mg as home dose -outpatient follow up to change thyroxine dose # DM type 2 -continue insulin sliding scale as prescribed # mild hypokalemia replenished Monitor BMP Goals of care/advance care planning; FULL CODE; discussed with the patient >15 minutes PUD prophylaxis: DVT prophylaxis: Lovenox Plan discussed with Dr. Friedman , nursing staff, patient Total time spent on patient evaluation, chart review, assessment and plan, discussion discussion >35 minutes Plan discussed with: Patient Plan discussed with: Patient, Spouse, Other (RN) My Orders My Orders Orders - TARSHA SMITH Procedure Category Date Status Time Levothyroxine Tablet PHA 06/21/24 In Process (Synthroid Tablet) 06:00 Glucose Blood PHA 06/20/24 In Process (Accu-Chek Comfort 12:00 Insulin R (Human) PHA 06/20/24 In Process (Insulin R) 12:00 Dextrose 50% Syringe PHA 06/20/24 In Process 12:00 Dietary Evaluation Review Comments: 1. Consider changing diet order to CCHO 60 gm/meal given hyperglycemia 2. Continue frequent BG checks; goal >70, <180 mg/dl while inpatient 3. Encourage continued good oral intake of meals >75% Expected Outcomes/Goals: Good glycemic control, adequate nutrition, weight maintenance TARSHA SMITH RESIDENT Jun 20, 2024 15:14
--- NOTE | 2024-06-20 18:37 | DVHSR ---
APPROVED REPORT EXAM: Two-dimensional and M-mode echocardiogram with Doppler and color Doppler. Blood Pressure: 142/69 mmHg INDICATION R/O structural heart disease RISK FACTORS Height: 5'1", Weight: 146 DIMENSIONS LVDd3.4 (3.8-5.7cm)LA (2D)3.0 (1.9-4.0cm)Aortic Root3.1 (2.0-3.7cm) LVDs1.6 (2.5-4.0cm)LA (MM) (1.9-4.0cm)Aortic Cusp Exc1.7 (1.5-2.0cm) EF (%) 84.0 (55-70%)Rt. Atrium2.8 (1.9-4.0cm)Asc. Aorta3.2 cm IVSd1.3 (0.7-1.1cm)RV (D)3.0 (1.8-2.4cm) PWd1.1 (0.7-1.1cm) Mitral Valve MitralMitral Stenosis E wave0.66m/sMV Mean GR.mmHg A wave0.79m/sMV Peak GR.mmHg E/A ratio0.82D MVAcm2 DECEL [id number] 1/2 Timems Aortic Valve Aortic ValveAortic Stenosis V10.93m/La Mean GR.7mmHg V22.07m/La Peak GR.17mmHg LVOT Diameter2.0 (1.8-2.4cm)Doppler AVA1.41cm2 Pulmonic Valve V20.76m/s Tricuspid Valve TR Velocity2.13m/s [id number] Conclusion Technically good study. Sinus rhythm. Mild aortic root enlargement with dilation of the sinuses of Valsalva. Notable concentric LVH. The mitral and aortic valves are otherwise structurally normal. The tricuspid and pulmonic are andrew l. Left ventricular systolic performance is preserved at 60% with normal RV function. Mild TR. No pericardial effusion masses or vegetations.
[2024-06-20] MEDS: ACETAMINOPHEN 325 MG TAB PO PRN (19:22)
[2024-06-20] MEDS: PANTOPRAZOLE 40 MG TAB PO ONE (20:19)
[2024-06-20] MEDS: cefTRIAXone 1GM/50ML D5W 50 ML IV SCH (20:19)
[2024-06-20] MEDS: IBUPROFEN 400 MG TAB PO ONE (20:19)
[2024-06-21] VITALS (8 sets, daily range): BP systolic 117–157; BP diastolic 74–97; PULSE 58–76; RESP 16–18; TEMP 97.5–98.3; O2SAT 96–99
[2024-06-21] MEDS ORDERED: LEVOTHYROXINE SODIUM 50 MCG TAB PO SCH (06:00)
[2024-06-21] MEDS: LEVOTHYROXINE SODIUM 50 MCG TAB PO SCH (06:05)
[2024-06-21 07:27] LABS: Chloride 104 mmol/L (98-107); Potassium 3.8 mmol/L (3.5-5.1); Sodium 138 mmol/L (136-145)
[2024-06-21 07:28] LABS: Anion Gap 9 (5-15); Calcium 9.1 mg/dL (8.7-10.4); Carbon Dioxide 25 mmol/L (20-31)
[2024-06-21 07:33] LABS: Blood Urea Nitrogen 11 mg/dL (9-23)
[2024-06-21 07:42] LABS: Glucose 157 mg/dL (74-106)
--- NOTE | 2024-06-21 14:28 | DVHDSRES ---
Discharge Summary Date of Admission Resident Creating Document: TARSHA SMITH RESIDENT Jun 19, 2024 at 21:46 Date of Discharge: Jun 21, 2024 Admitting Diagnosis Syncope, rule out TIA/orthostatic hypotension/BPPV/dehydration Labs/Diagnostic Data: Laboratory Results Test 06/21/24 08:32 06/21/24 06:21 06/20/24 05:40 06/19/24 21:57 POC Glucose 149 mg/dl (70-106) Sodium Level 138 mmol/L (136-145) Potassium Level 3.8 mmol/L (3.5-5.1) Chloride Level 104 mmol/L (98-107) Carbon Dioxide Level 25 mmol/L (20-31) Anion Gap 9 (5-15) Blood Urea Nitrogen 11 mg/dL (9-23) Creatinine 0.92 mg/dL (0.550-1.02) Glomerular Filtration Rate Calc 73 mL/min (>90) BUN/Creatinine Ratio 12.0 (10.0-20.0) Serum Glucose 157 mg/dL (74-106) Calcium Level 9.1 mg/dL (8.7-10.4) White Blood Count 5.5 10^3/uL (4.4-10.8) Red Blood Count 4.02 10^6/uL (4.0-5.20) Hemoglobin 12.5 g/dL (12.2-16.2) Hematocrit 36.8 % (36.0-46.0) Mean Corpuscular Volume 91.5 fL (80.0-100.0) Mean Corpuscular Hemoglobin 31.2 pg (28.0-32.0) Mean Corpuscular Hemoglobin Concent 34.1 g/dL (32.0-36.0) Red Cell Distribution Width 12.8 % (11.8-14.3) Platelet Count 174 10^3/uL (140-450) Mean Platelet Volume 9.4 fL (6.9-10.8) Neutrophils (%) (Auto) 51.7 % (37.0-80.0) Lymphocytes (%) (Auto) 39.3 % (10.0-50.0) Monocytes (%) (Auto) 7.1 % (0.0-12.0) Eosinophils (%) (Auto) 1.3 % (0.0-7.0) Basophils (%) (Auto) 0.6 % (0.0-2.0) Neutrophils # (Auto) 2.8 10 ^3/uL (1.6-8.6) Lymphocytes # (Auto) 2.2 10 ^3/uL (0.4-5.4) Monocytes # (Auto) 0.4 10 ^3/uL (0-1.3) Eosinophils # (Auto) 0.1 10 ^3/uL (0-0.8) Basophils # (Auto) 0 10 ^3/uL (0-0.2) Nucleated Red Blood Cells 0.2 % Hemoglobin A1c 8.4 % A1C (<5.7) Total Bilirubin 0.4 mg/dL (0.2-1.0) Aspartate Amino Transferase (AST) 23 U/L (13-40) Alanine Aminotransferase (ALT) 15 U/L (7-40) Alkaline Phosphatase 42 U/L (46-116) Total Protein 6.7 g/dL (5.7-8.2) Albumin 4.1 g/dL (3.2-4.8) Free Thyroxine (T4) Calculated 0.41 ng/dL (0.89-1.76) Total Triiodothyronine (TT3) 0.60 ng/mL (0.60-1.81) Plasma/Serum Blood Alcohol < 3.0 mg/dL (<10) Test 06/19/24 21:20 06/19/24 18:00 06/19/24 15:31 06/19/24 15:16 Urine Color Yellow (Yellow) Urine Clarity Turbid (Clear) Urine pH 6.0 (5.0-9.0) Urine Specific [place] 1.017 (1.001-1.035) Urine Protein Trace (Negative) Urine Ketones Negative (Negative) Urine Blood Negative /uL (Negative) Urine Nitrite Negative (Negative) Urine Bilirubin Negative (Negative) Urine Urobilinogen Normal mg/dL (Negative) Urine Leukocyte Esterase 3+ /uL (Negative) Urine RBC 12 /hpf (0 - 4) Urine Microscopic WBC 53 /HPF (0-5) Urine Squamous Epithelial Cells Few /hpf (<5) Urine Bacteria Few /hpf (None Seen) Urine Hyaline Casts Mod /lpf (0 - 2) Urine Mucus Few (None Seen) Urine Glucose 3+ mg/dL (Normal) Urine Opiates Screen Neg (NEGATIVE) Urine Fentanyl Screen Neg (NEGATIVE) Urine Barbiturates Screen Neg (NEGATIVE) Urine Phencyclidine Screen Neg (NEGATIVE) Urine Amphetamines Screen Neg (NEGATIVE) Urine Benzodiazepines Screen Neg (NEGATIVE) Urine Cocaine Screen Neg (NEGATIVE) Urine Cannabinoids Screen Neg (NEGATIVE) D-Dimer, Quantitative 0.23 mg/L FEU (0.0-0.49) Troponin I High Sensitivity < 3 ng/L (</=34) Thyroid Stimulating Hormone (TSH) 59.48 uIU/mL (0.55-4.78) Lactic Acid Level 1.2 mmol/L (0.4-2.0) Magnesium Level 2.0 mg/dL (1.6-2.6) B-Type Natriuretic Peptide 8.04 pg/mL (0-100) Influenza Type A Antigen Negative (Negative) Influenza Type B Antigen Negative (Negative) SARS-CoV-2 Antigen (Rapid) Negative (NEGATIVE) Other Laboratory Tests 06/21/24 06:21 06/20/24 05:40 Brief Hx & Hospital Course: HPI- Kiser, Tete 58 years old female with a PMH of type 2 DM, HTN, hypothyroidism presented to the ED with the chief complaints of syncopal episode. Patient reported since Sunday patient has been having mild nausea body aches and tiredness but yesterday patient was walking and suddenly she fainted without any prodromal symptoms patient is exactly unable to recall how much time she was fainted approximately 2 hours and hit her chin. Patient also reported she has a history of fainting during her at that time she has some prodromal symptoms but not this time. Patient is more consent so visited ED. patient also reported she has been experiencing flu-like symptoms for 1 week. On my assessment patient denies fever, chest pain, shortness of breath, palpitations, nausea, vomiting, heterogeneous and other acute associated symptoms. Patient's lab workup revealed potassium 3.4, TSH 59.48, free T4 0.41, total T3 0.60. Urinalysis revealed leukocyte esterase 3+, WBC 53, RBC 12, bacteria few. CXR no acute evidence of disease. CT head- No acute intracranial process. Acute sinusitis. EKG normal sinus rhythm, no acute ST or T-wave changes no heart block. Orthostatic vitals negative for arthritic hypotension. Echo 2D revealed LV EF 60%, concentric LVH. Mild TR. Mild aortic root enlargement with dilatation of the sinus of the Valsalva. Hospital voice-patient came to the hospital with a complaint of syncope and mechanical fall. Patient is admitted to the hospital due to syncope, rule out TIA/BPPV/vital cardiac arrhythmia/dehydration.Patient's lab workup revealed potassium 3.4, TSH 59.48, free T4 0.41, total T3 0.60. Urinalysis revealed leukocyte esterase 3+, WBC 53, RBC 12, bacteria few. CXR no acute evidence of disease. CT head- No acute intracranial process. Acute sinusitis. EKG normal sinus rhythm, no acute ST or T-wave changes no heart block. Orthostatic vitals negative for arthritic hypotension. Echo 2D revealed LV EF 60%, concentric LVH. Mild TR. Mild aortic root enlargement with dilatation of the sinus of the Valsalva. Orthostatic vitals negative for orthostatic hypotension. Guillermo- Hallpike maneuver was negative. Patient's symptoms improved gradually. Patient's levothyroxine was restarted. Patient was advised to follow up with the primary care physician in 1 week. PCP to refer patient to airport security screener for further evaluation and workup of syncope to rule out cardiac arrhythmia. Patient was advised to avoid dehydration. Patient was hemodynamically stable on discharge. Patient was also advised to resume home medications. Diagnosis Syncope likely due to dehydration/hypovolemia Rule out TIA # ? Autonamic Imbalance # mechanical fall with a LOC # acute sinusitis -clinical and CT evident -currently on Rocephin # Acute complicated UTI # hypothyroidism # DM type 2 # mild hypokalemia replenished No hypertensive urgency Discharge plan Please resume home medications Please follow up with the primary care physician in 1 week Please get a referral from your PCP to follow up with the airport security screener for the of syncope, rule out any cardiac arrhythmia Please avoid dehydration Please be compliant with medication Operations or Procedures [address] [address] Ph: [phone] DIAGNOSTIC IMAGING Diagnostic Imaging Report : [id number] Signed PATIENT: TETE KISER ACCT: [id number] UNIT: [id number] : 1965 LOC: [facility] ROOM / BED: [facility] / A AGE / SEX: 58 / F ADM STATUS: ADM IN SERVICE 45 ORDERING PHYSICIAN: SERGEY BENITES RESIDENT PROCEDURE(s): ECIDC - ECHO 2D MODE CARDIAC DOP REASON: To rule out structural heart disease ORDER NUMBER(s): [id number], ACCESSION NUMBER(s): [id number] APPROVED REPORT EXAM: Two-dimensional and M-mode echocardiogram with Doppler and color Doppler. Blood Pressure: 142/69 mmHg INDICATION R/O structural heart disease RISK FACTORS Height: 5'1", Weight: 146 DIMENSIONS LVDd 3.4 (3.8-5.7cm) LA (2D) 3.0 (1.9-4.0cm) Aortic Root 3.1 (2.0- 3.7cm) LVDs 1.6 (2.5-4.0cm) LA (MM) (1.9-4.0cm) Aortic Cusp Exc 1.7 (1.5- 2.0cm) EF (%) 84.0 (55-70%) Rt. Atrium 2.8 (1.9-4.0cm) Asc. Aorta 3.2 cm IVSd 1.3 (0.7-1.1cm) RV (D) 3.0 (1.8-2.4cm) PWd 1.1 (0.7-1.1cm) Mitral Valve Mitral Mitral Stenosis E wave 0.66m/s MV Mean GR. mmHg A wave 0.79m/s MV Peak GR. mmHg E/A ratio 0.8 2D MVA cm2 DECEL Time 186ms PRESS 1/2 Time ms Aortic Valve Aortic Valve Aortic Stenosis V1 0.93m/s AO Mean GR. 7mmHg V2 2.07m/s AO Peak GR. 17mmHg LVOT Diameter 2.0 (1.8-2.4cm) Doppler GISELLE 1.41cm2 Pulmonic Valve V2 0.76m/s Tricuspid Valve TR Velocity 2.13m/s RVSP 21mmHg Conclusion Technically good study. Sinus rhythm. Mild aortic root enlargement with dilation of the sinuses of Valsalva. Notable concentric LVH. The mitral and aortic valves are otherwise structurally normal. The tricuspid and pulmonic are normal. Left ventricular systolic performance is preserved at 60% with normal RV function. Mild TR. No pericardial effusion masses or vegetations. SIGNED BY: SPENCER CARRERA Sr., MD SIGNED DATE/TIME: 06/20/24 7811 CC: [address] [address] Ph: [phone] DIAGNOSTIC IMAGING Diagnostic Imaging Report : [id number] Signed PATIENT: TETE KISER ACCT: [id number] UNIT: [id number] : 1965 LOC: ER ROOM / BED: / AGE / SEX: 58 / F ADM STATUS: REG ER SERVICE 1500 ORDERING PHYSICIAN: MIRELA SHAIKH DO PROCEDURE(s): HWOCT - HEAD WITHOUT CONTRAST REASON: SYNCOPE AND COLLAPSE ORDER NUMBER(s): [id number], ACCESSION NUMBER(s): [id number] EXAM: CT HEAD WITHOUT CONTRAST HISTORY: SYNCOPE AND COLLAPSE COMPARISON: None TECHNIQUE: Axial images were obtained and reformatted in coronal and sagittal planes. All CT scans at this medical facility are performed using dose modulation techniques as appropriate to a performed exam including the following: Automated exposure control was utilized; adjustment of the MA and/or KV according to patient size; and use of iterative reconstruction technique. CT Dose: CTDI volume is 51.58 mGy. Dose-length product is 826.95 mGy*cm FINDINGS: Supratentorial Region: No evidence for large acute territorial ischemia. No intracranial hemorrhage is noted. Posterior Fossa: No acute abnormality. Brainstem: Unremarkable. Sellar/Suprasellar Region: Mild diffuse paranasal sinus mucosal thickening. Air-fluid levels are noted in the frontal, sphenoid and maxillary sinuses. Ventricles, Cisterns, Sulci: Age-appropriate. Orbits: Unremarkable. Paranasal Sinuses: Unremarkable. Mastoid Air Cells: Unremarkable. Vasculature: Intracranial arterial calcified plaque formation noted. Bones/Soft Tissues: No acute abnormality. Other: None. IMPRESSION: 1. No acute intracranial process. 2. Acute sinusitis. ATED BY: YESSICA STANLEY MD DICTATED DATE/TIME: 06/19/24 1614 SIGNED BY: YESSICA STANLEY MD SIGNED DATE/TIME: 06/19/24 1614 CC: Condition at Discharge: Stable Final Diagnosis/Problems List Syncope likely due to volume depletion/suspected autonomic neuropathy Ruled out TIA Ruled out orthostatic hypotension Discharge Disposition: Home Discharge Instruct/Medications Diet: Consistent carbohydrate, Cardiac 2g Na,low cholest Activity: Light activity Follow Up/Referral: Please follow up with the primary care physician in 1 week Please get a referral from your PCP to follow up with the airport security screener for the of syncope, rule out any cardiac arrhythmia Please avoid dehydration Please be compliant with medication Medications: Please resume home medications Avoid dehydration Discharge Statement: "Patient was advised to return to the ER or call 911 if any headaches, dizziness, shortness of breath, chest pain, abdominal pain, bleeding, fevers, or worsening of medical condition. Patient was counseled about treatment plan, medications, possible side effects, patientverbalized understanding. All questions were answered to the best of my ability. This discharge took greater then 30 minutes in planning, reviewing documentation, counseling the patient, and discussing with other team members." ASSESSMENT ASSESSMENT Assessment Syncope likely due to volume depletion/suspected autonomic neuropathy Ruled out TIA Ruled out orthostatic hypotension TARSHA SMITH RESIDENT Jun 21, 2024 14:28
[2024-06-21] MEDS ORDERED: LEVO112T4 PO (14:29)
[2024-06-21] MEDS: hydrALAZINE HCL 20 MG/ML VL IV PRN (15:39)
== END 2024-06-21 17:40 | disposition home or self-care (01) | DRG 48 ==
LOC: ER 15:07 → OVERFLOW 21:46 → TELE-WESTW 21:49
PROVIDERS: ADMIT Student in an Organized Health Care Education/Training Program; ATTEND Student in an Organized Health Care Education/Training Program
DX: G90.9 Disorder of the autonomic nervous system, unspecified (principal); E03.9 Hypothyroidism, unspecified; E86.0 Dehydration; J01.90 Acute sinusitis, unspecified; E11.9 Type 2 diabetes mellitus without complications; Z20.822 Contact with and (suspected) exposure to COVID-19; E86.9 Volume depletion, unspecified; E86.1 Hypovolemia; I10 Essential (primary) hypertension; N39.0 Urinary tract infection, site not specified; E87.6 Hypokalemia; Z79.899 Other long term (current) drug therapy; Z88.8 Allergy status to other drugs, medicaments and biological substances
CPT/HCPCS: 36415; 70450; 71045; 80048; 80053; 80307; 80320; 81001; 82962; 83036; 83605; 83735; 83880; 84439; 84443; 84480; 84484; 85025; 85379; 87086; 87426; 87804; 93005; 93306; 96360; 96361; G0378; J1815

== ENCOUNTER 2025-04-06 14:42 | Emergency (ER) | payer MEDICAID ==
[~2025-04-06] VITALS: Ht 157.5 cm; Wt 72.8 kg
[~2025-04-06 14:42] MED LIST: ASPI-628; LEVO112T4 PO; LEVO125T7 PO; METF-370 PO
[2025-04-06] MEDS ORDERED: AUG875T PO (16:13)
--- NOTE | 2025-04-06 16:13 | ED.PDOC ---
Eye-HPI HPI Comments The patient presents for evaluation of a sore throat, reporting left-sided throat pain since January (approximately 12 months before this visit). The patient also notes chills and sweating. The patient describes pain in the sinus area and involvement of the ears, stating that "everything right here was hurting" upon arrival. The patient has checked their oxygen at home and was concerned it was going low, but did not specify any recent measurements. There is no reported dysuria or urinary symptoms. The patient has tried Sudafed for sinus symptoms and continues to use Tylenol for pain. No specific alleviating or aggravating factors, radiation, timing, or severity details are provided. No information is provided regarding family history, allergies, current medications, social history, or past medical/surgical history. Chief Complaint: Sore Throat Time Seen by MD: 15:02 Primary Care Provider: Edy Soto Notes: Nurses Notes, Medications, Allergies Allergies: Coded Allergies: NO KNOWN ALLERGIES (Unverified , 04/29/21) Home Meds Active Scripts Amoxicillin & Pot Clavulanate (AUGMENTIN TABLET) 875 Mg Tb, 875 MG PO BID for 7 Days, #14 TAB 0 Refills Prov:MECHELLE SEGOVIA HOME PERFORMANCE CONSULTANT 04/06/25 Levothyroxine Sodium (Levothyroxine Sodium) 112 Mcg Tab, 125 MCG PO DAILY, #30 TAB Prov:TARSHA SMITH RESIDENT 06/21/24 Reported Medications Metformin Hydrochloride (Metformin Hcl) 500 Mg Tab, 1 TAB PO BID 06/20/24 Aspirin (Aspirin Adult Low Dose) 81 Mg Tab, 1 DAILY 06/20/24 Levothyroxine Sodium (Levothyroxine Sodium) 125 Mcg Tab, 1 TAB PO DAILY 06/20/24 Information Source: Patient Mode of Arrival: Ambulatory Timing: Months Duration: Since onset Prehospital treatment: None Quality: Pain Lids: Normal Conjunctiva: Normal Cornea: Normal Pupils: Normal EOM: Normal Fundus: Normal Slit lamp exam: Normal Anterior chamber: Normal Mouth: Normal ENT Ear Exam: Normal, Normal, Normal Nose: Normal Sinuses: Normal Oropharynx: Normal Onset: Spontaneous Throat Exposed to: None History of: None Associated signs and symptoms: Chills, Sore Throat Past Medical History PAST MEDICAL HISTORY: HTN Surgical History: Denies all surgeries METAL SORTER History: No Pertinent METAL SORTER History Family History Family History: Reviewed,noncontributory to illness, Unknown Social History Smoker: Non-Smoker Alcohol: Denies ETOH Use Drugs: Denies Drug Use Lives In: Home Constitutional: reports: chills, sweats; denies: diaphoresis, fatigue, fever, malaise, weakness, others EENTM: reports: throat pain, throat swelling; denies: blurred vision, double vision, ear bleeding, ear discharge, ear drainage, ear pain, ear ringing, eye pain, eye redness, hearing loss, mouth pain, mouth swelling, nasal discharge, nose bleeding, nose congestion, nose pain, photophobia, tearing, voice changes, others Respiratory: denies: cough, hemoptysis, orthopnea, SOB at rest, shortness of breath, SOB with excertion, stridor, wheezing, others Cardiovascular: denies: chest pain, dizzy spells, diaphoresis, Dyspnea on exertion, edema, irregular heart beat, left arm pain, lightheadedness, palpitations, PND, syncope, others Gastrointestinal: denies: abdomen distended, abdominal pain, blood streaked bowels, constipated, diarrhea, dysphagia, difficulty swallowing, hematemesis, melena, nausea, poor appetite, poor fluid intake, rectal bleeding, rectal pain, vomiting, others Genitourinary: denies: abnormal vagina bleeding, burning, dyspareunia, dysuria, flank pain, frequency, hematuria, incontinence, pain, , vagina discharge, urgency, others Neurological: denies: dizziness, fainting, headache, left sided numbness, left sided weakness, numbness, paresthesia, pre-existing deficit, right sided numbness, right sided weakness, seizure, speech problems, tingling, tremors, weakness, others Musculoskeletal: denies: back pain, gout, joint pain, joint swelling, muscle pain, muscle stiffness, neck pain, others Integumetry: denies: bruises, change in color, change in hair/nails, dryness, laceration, lesions, lumps, rash, wounds, others Allergic/Immunocompromised: denies: Difficulty Healing, Frequent Infections, Hives, Itching, others Hematologic/Lymphatic: denies: anemia, blood clots, easy bleeding, easy bruising, swollen glands, others Endocrine: denies: excessive hunger, excessive sweating, excessive thirst, excessive urination, flushing, intolerance to cold, intolerance to heat, unexplained weight gain, unexplained weight loss, others Psychiatric: denies: anxiety, bipolar disorder, depression, hopeless, panic disorder, schizophrenia, sleepless, suicidal, others All Other Systems: Reviewed and Negative Physical Exam Exam Comments Uvula midline. No airway obstruction, moist mucous membranes, no tonsillar exudate. No strawberry tongue no Koplik's spots General Appearance: No Apparent Distress, Normal HEENT: Normal ENT Inspection, Pharynx Normal, TMs Normal Neck: Full Range of Motion, Non-Tender, Normal, Normal Inspection Respiratory: Chest Non-Tender, Lungs Clear, No Accessory Muscle Use, No Respiratory Distress, Normal Breath Sounds Cardiovascular: No Edema, No JVD, No Murmur, No Gallop, Normal Peripheral Pulses, Regular Rate/Rhythm Breast Exam: Deferred Gastrointestinal: No Organomegaly, Non Tender, No Pulsatile Mass, Normal Bowel Sounds, Soft Genitalia: Deferred Pelvic: Deferred Rectal: Deferred Extremities: No calf tenderness, Normal capillary refill, Normal inspection, Normal range of motion, Non-tender, No pedal edema Musculoskeletal : Apperance: Normal Neurologic: Alert, riverboat captain II-XII nml as Tested, No Motor Deficits, Normal Affect, Normal Mood, No Sensory Deficits Cerebellar Function: Normal Reflexes: Normal Skin: Dry, Normal Color, Warm Lymphatic: No Adenopathy Was a procedure done? Was a procedure done?: No EENT DIFF Eye: Other X-Ray, Labs, Meds, VS Vital Signs Date Time Temp Pulse Resp B/P (MAP) Pulse Ox O2 Delivery O2 Flow Rate FiO2 04/06/25 16:14 98.7 63 16 107/65 (79) 100 98.7 04/06/25 14:45 97.4 94 15 155/98 97 97.4 X-Ray, Labs, Meds, VS Comment Patient arrives alert and oriented, ABC's intact, afebrile, vital signs stable, saturating well in room air Differential considered but not limited to frontal headache, migraine, URI. I also considered orbital cellulitis, osteomyelitis, cerebral abscess, meningitis, frontal bone abscess (Pott puffy tumor), however, this is less likely as the patient does not have any red flags. Patient is not immunocompromised, they are non-toxic, there are no high fevers and do not present with an intractable headache, During the physical exam there was TTP over the frontal and maxillary sinuses consistent with sinusitis therefore routine imaging such as CT was deferred during this visit. Prescribed antibiotics for presentation of symptoms. Complete course of antibiotic therapy even if symptoms improve or resolve. There should be no leftover antibiotics as this can lead to antibiotic resistant bacteria and even worse infection. Potential side effects discussed including abdominal pain, nausea, diarrhea. Also recommend antihistamines, decongestants and antipyretics as needed. Additional MDM Review of External, Non-ED records: External records reviewed. Discussion with independent historian (EMS, family) history obtained from the patient/parents (if applicable) at bedside Chronic conditions affecting care: None Social determinants of health affecting care: None Consideration of admission (observation or admission): I considered escalation of care to admission for this patient, however given the reassuring workup, the patient is safe for outpatient management. Discussion with the Radiology: No Tests considered but not performed: Prescription medication considered but not given: 12 lead EKG interpretation: Time of 1ST Reevaluation: 15:30 Reevaluation 1ST: Unchanged Patient Education/Counseling: Diagnosis, Treatment, Prognosis Family Education/Counseling: No Family Present SEPSIS Sepsis Screen Date sepsis recognized/suspect: Apr 06, 2025 Time Sepsis recognized/suspect: 1446 Recent Procedure: No On Antibiotic Therapy: No Respiratory Rate >20: No Heart Rate >90: No Temp<36 C (96.8 F) or >38.3 C: No SBP <90 or MAP <65 mmHG: No New Acute Mental Status Change: No Is the patient on CPAP, BIPAP,: No Vital Signs Date Time Temp Pulse Resp B/P (MAP) Pulse Ox O2 Delivery O2 Flow Rate FiO2 04/06/25 16:14 98.7 63 16 107/65 (79) 100 98.7 04/06/25 14:45 97.4 94 15 155/98 97 97.4 Departure 1 Departure Time of Disposition: 16:12 Impression: Primary Impression: Acute sinusitis Disposition: 01 HOME / SELF CARE / HOMELESS Condition: Stable e-Prescriptions Amoxicillin & Pot Clavulanate (AUGMENTIN TABLET) 875 Mg Tb 875 MG PO BID for 7 Days, #14 TAB 0 Refills Prov: MECHELLE SEGOVIA NP 04/06/25 Critical Care Note Critical Care Time?: No Stability Stability form required: No I personally scribed for MECHELLE SEGOVIA NP ([email or web address]) on 04/06/25 at 16:50. Electronically submitted by Ricardo Waters ([email or web address]). MECHELLE SEGOVIA NP Apr 06, 2025 16:13
[2025-04-06 16:14] VITALS: BP 107/65; PULSE 63; RESP 16; TEMP 98.7; O2SAT 100
== END 2025-04-06 16:57 | disposition home or self-care (01) ==
LOC: ER 14:42
DX: J01.90 Acute sinusitis, unspecified (principal); I10 Essential (primary) hypertension; Z79.899 Other long term (current) drug therapy; Z79.890 Hormone replacement therapy; Z79.84 Long term (current) use of oral hypoglycemic drugs; Z79.82 Long term (current) use of aspirin